=== PATIENT | male | born 1945 | race Caucasian/White ===

== ENCOUNTER → 2018-05-26 | Outpatient (CLI) | payer MEDICARE, BC ==
[2018-05-26 17:43] LABS: BASOPHILS # (AUTO) 0.04 x10^3/uL (0-0.1); BASOPHILS % (AUTO) 1 % (0-1); EOSINOPHILS # (AUTO) 0.17 x10^3/uL (0-0.4); EOSINOPHILS % (AUTO) 4 % (1-7); LYMPHOCYTES # (AUTO) 1.53 x10^3/uL (1-3.4); LYMPHOCYTES % (AUTO) 31 % (22-44); MD NO; MEAN CORPUSCULAR HGB CONC 34.1 g/dL (33.2-36.2); MEAN CORPUSCULAR VOLUME 96.8 fL (81-97); MEAN PLATELET VOLUME 7.9 fL (7.4-10.4); MONOCYTES % (AUTO) 12 % (2-9); NEUTROPHILS # (AUTO) 2.58 x10^3/uL (1.8-6.8); NEUTROPHILS % (AUTO) 52 % (42-75); PLATELET COUNT 194 x10^3/uL (130-400); RED CELL DISTRIBUTION WIDTH 13.7 % (9.4-14.8)
[2018-05-26 17:54] LABS: ALANINE AMINOTRANSFERASE 29 U/L (12-78); ANION GAP 6 mmol/L (5-15); CALCIUM 8.8 mg/dL (8.5-10.1); CHLORIDE 104 mmol/L (98-107)
[2018-05-26 17:57] LABS: ALKALINE PHOSPHATASE 72 U/L (45-117); BILIRUBIN,TOTAL 0.2 mg/dL (0.2-1.0)
== END | disposition home or self-care (01) ==
LOC: LAB 17:26
PROVIDERS: ATTEND Family Medicine
DX: R19.5 Other fecal abnormalities (principal); G40.909 Epilepsy, unspecified, not intractable, without status epilepticus
CPT/HCPCS: 36415; 80053; 85025

== ENCOUNTER → 2018-08-11 | Outpatient (CLI) | payer MEDICARE, BC | END | disposition home or self-care (01) | LOC: CFH 15:42 | PROVIDERS: ATTEND Internal Medicine Cardiovascular Disease | DX: I08.3 Combined rheumatic disorders of mitral, aortic and tricuspid valves (principal); I25.10 Atherosclerotic heart disease of native coronary artery without angina pectoris; I10 Essential (primary) hypertension | CPT/HCPCS: 0399T; 93306 ==

== ENCOUNTER 2019-07-08 02:10 | Observation (INO) | payer MEDICARE, BC ==
[~2019-07-08] VITALS: Ht 180.3 cm; Wt 81.0 kg
[2019-07-08] MEDS ORDERED: ONDANSETRON 2MG/ML, 2ML IVPush ONE (02:30)
[2019-07-08] MEDS ORDERED: PLEASE ENTER ALLERGIES MC SCH (02:30)
[2019-07-08] MEDS ORDERED: SODIUM CHLORIDE FLUSH 10ML SYR IVF ONE (02:30)
[2019-07-08] MEDS ORDERED: NITR0.3T5 SL (02:44)
[2019-07-08] MEDS ORDERED: LISI2.5T PO (02:44)
[2019-07-08] MEDS ORDERED: METO25TA35 PO (02:44)
[2019-07-08] MEDS ORDERED: ASPI81TA45 PO (02:44)
[2019-07-08] MEDS ORDERED: ATOR20TA86 PO (02:44)
[2019-07-08] MEDS ORDERED: LAMO250T2 PO (02:44)
[2019-07-08] MEDS ORDERED: PHEN100C PO (02:44)
[2019-07-08] MEDS ORDERED: RIVA20TA PO (02:44)
[2019-07-08] MEDS ORDERED: GABA300C10 PO (02:44)
[2019-07-08] MEDS ORDERED: VIT1CAPS42 PO (02:44)
[2019-07-08] MEDS ORDERED: ISOS30TA8 PO (02:44)
[2019-07-08] MEDS ORDERED: DIPH25CA61 PO (02:44)
[2019-07-08 02:52] LABS: BASOPHILS # (AUTO) 0.03 x10^3/uL (0-0.1); BASOPHILS % (AUTO) 1 % (0-1); EOSINOPHILS # (AUTO) 0.13 x10^3/uL (0-0.4); EOSINOPHILS % (AUTO) 4 % (1-7); LYMPHOCYTES # (AUTO) 1.18 x10^3/uL (1-3.4); LYMPHOCYTES % (AUTO) 33 % (22-44); MD NO; MEAN CORPUSCULAR HGB CONC 33.9 g/dL (33.2-36.2); MEAN CORPUSCULAR VOLUME 97.3 fL (81-97); MEAN PLATELET VOLUME 8.2 fL (7.4-10.4); MONOCYTES # (AUTO) 0.49 x10^3/uL (0.2-0.8); MONOCYTES % (AUTO) 14 % (2-9); NEUTROPHILS # (AUTO) 1.71 x10^3/uL (1.8-6.8); NEUTROPHILS % (AUTO) 48 % (42-75); PLATELET COUNT 190 x10^3/uL (130-400); RED BLOOD COUNT 4.11 x10^6/uL (4.38-5.82)
[2019-07-08] MEDS ORDERED: MORPHINE SULFATE 4 MG/ML, 1ML ONE (02:56)
[2019-07-08] MEDS ORDERED: ONDANSETRON 2MG/ML, 2ML ONE (02:56)
[2019-07-08] MEDS: MORPHINE SULFATE 4 MG/ML, 1ML IVPush PRN ×2 (02:58→03:07)
--- NOTE | 2019-07-08 03:10 | NUR ---
Late entry: Patient BIB [facility] c/o left side chest pressure since 2300. The discomfort woke him from sleep. Patient denied other associated symptoms such as nausea, diaphoresis, or radiation. Patient has a cardiac hx with Nitro PRN. Patient self admin 324mg ASA and 3 Nitro with no relief. IV established by EMS; no meds given en route. Patient is in obvious discomfort but rates his pain at a 3/10. Respirations even and unlabored.
[2019-07-08 03:11] LABS: ALANINE AMINOTRANSFERASE 34 U/L (12-78); ALBUMIN 3.6 g/dL (3.4-5.0); ANION GAP 6 mmol/L (5-15); CALCIUM 8.7 mg/dL (8.5-10.1); CHLORIDE 106 mmol/L (98-107); CREATININE 1.43 mg/dL (0.7-1.3)
--- NOTE | 2019-07-08 03:13 | NUR ---
Patient offered meds per mar for his pain but he initially refused. Patient agreed to half dose of morphine. Admin meds per mar.
[2019-07-08 03:16] LABS: ALKALINE PHOSPHATASE 60 U/L (45-117); BILIRUBIN,TOTAL 0.1 mg/dL (0.2-1.0); TOTAL PROTEIN 6.6 g/dL (6.4-8.2)
[2019-07-08] MEDS ORDERED: morphine SULFATE 10 MG/ML, 1ML IVPush ONE (03:30)
[2019-07-08] MEDS ORDERED: ONDANSETRON ODT 4 MG PO PRN (04:00)
[2019-07-08] MEDS ORDERED: ENALAPRILAT 1.25 MG/ML, 2ML IVPush PRN (04:00)
[2019-07-08] MEDS ORDERED: ONDANSETRON 2MG/ML, 2ML IVPush PRN ×2 (04:00)
[2019-07-08] MEDS ORDERED: ENOXAPARIN 40 MG/0.4 ML SQ SCH (04:00)
[2019-07-08] MEDS ORDERED: LABETALOL 5MG/ML, 20ML IVPush PRN (04:00)
[2019-07-08] MEDS ORDERED: morphine SULFATE 10 MG/ML, 1ML IVPush PRN (04:00)
[2019-07-08] MEDS ORDERED: BISACODYL 10 MG SUPP PR PRN (04:00)
[2019-07-08] MEDS ORDERED: OXYcodone IR 5MG TABLET PO PRN (04:00)
[2019-07-08] MEDS ORDERED: POLYETHYLENE GLYCOL 17 GM PACKET PO PRN (04:00)
[2019-07-08] MEDS ORDERED: ACETAMINOPHEN 325 MG TABLET PO PRN (04:00)
[2019-07-08] MEDS ORDERED: NITROGLYCERIN 0.4 MG BOTTLE (25 TABS) SL PRN (04:00)
[2019-07-08] MEDS ORDERED: NITROGLYCERIN 0.4 MG SL PRN (04:00)
--- NOTE | 2019-07-08 04:21 | NUR ---
Report given to VISHAL Ovalle. Patient to be transferred to bed 521-1.
[2019-07-08 04:54] VITALS: BP 126/75
[2019-07-08] MEDS: ENOXAPARIN MC SCH ×2 (05:00→12:18)
[2019-07-08] MEDS: RIVAROXABAN MC SCH ×2 (05:00→12:18)
[2019-07-08] MEDS ORDERED: ASPIRIN 325 MG TABLET EC PO SCH (06:00)
[2019-07-08] MEDS ORDERED: PANTOPROZOLE 40MG TABLET PO SCH (07:30)
[2019-07-08] MEDS ORDERED: LISINOPRIL 5 MG TABLET PO SCH ×3 (09:00→21:00)
[2019-07-08] MEDS ORDERED: LAMOTRIGINE 100 MG TABLET PO SCH (09:00)
[2019-07-08] MEDS ORDERED: RIVAROXABAN 20 MG TABLET PO SCH ×4 (09:00→21:00)
[2019-07-08] MEDS ORDERED: METOPROLOL TARTRATE 25 MG TAB PO SCH ×3 (09:00→21:00)
[2019-07-08] MEDS ORDERED: ATORVASTATIN 10 MG TABLET PO SCH ×3 (09:00→21:00)
[2019-07-08] MEDS ORDERED: MULTIVITAMIN 1 TABLET PO SCH (09:00)
[2019-07-08] MEDS ORDERED: PHENYTOIN 100 MG CAPSULE PO SCH ×3 (09:00→21:00)
[2019-07-08] MEDS ORDERED: ISOSORBIDE MONONITRATE ER 30 MG TABLET PO SCH ×3 (09:00→21:00)
[2019-07-08] MEDS ORDERED: SENNA/DOCUSATE TABLET PO SCH (09:00)
[2019-07-08] MEDS ORDERED: DIPHENHYDRAMINE 25 MG CAPSULE PO SCH ×3 (09:00→21:00)
[2019-07-08] MEDS: GABAPENTIN 300 MG CAPSULE PO SCH ×2 (09:54→16:21)
[2019-07-08 10:04] VITALS: BP 149/86
[2019-07-08] MEDS ORDERED: REGADENOSON 0.4 MG/5 ML SYRINGE ONE (11:46)
[2019-07-08 14:23] LABS: TROPONIN I 0.018 ng/mL (0.000-0.045)
[2019-07-08] MEDS ORDERED: OMEP-110 PO (15:50)
[2019-07-08 16:26] VITALS: BP 135/73
== END 2019-07-08 17:00 | disposition home or self-care (01) ==
LOC: ED 04:02 → INTOOBSV 04:24 → EDIP 04:24 → 5SO 04:32 → DCLOUNGE 16:55
PROVIDERS: ADMIT Internal Medicine; ATTEND Internal Medicine
DX: R07.89 Other chest pain (principal); N17.9 Acute kidney failure, unspecified; I25.110 Atherosclerotic heart disease of native coronary artery with unstable angina pectoris; I25.2 Old myocardial infarction; G40.909 Epilepsy, unspecified, not intractable, without status epilepticus; Z95.5 Presence of coronary angioplasty implant and graft; I27.20 Pulmonary hypertension, unspecified; G20 Parkinson's disease; Z79.899 Other long term (current) drug therapy; Z79.82 Long term (current) use of aspirin; Z79.01 Long term (current) use of anticoagulants
CPT/HCPCS: 36415; 71045; 78452; 80053; 83880; 84484; 85025; 93005; 93017; 96374; 96375; 96376; 99285; A9502; C9898; G0378; J2270; J2405; J2785

== ENCOUNTER 2020-01-31 10:58 | Observation (INO) | payer MEDICARE, BC ==
[~2020-01-31] VITALS: Ht 177.8 cm; Wt 78.4 kg
[~2020-01-31 10:58] MED LIST: ASPI81TA45 PO; ATOR20TA86 PO; DIPH25CA61 PO; GABA300C10 PO; ISOS30TA8 PO; LAMO250T2 PO; LISI2.5T PO; METO25TA35 PO; NITR0.3T5 SL; OMEP-110 PO; PHEN100C PO; RIVA20TA PO; VIT1CAPS42 PO
[2020-01-31] MEDS ORDERED: SODIUM CHLORIDE FLUSH 10ML SYR IVF ONE (11:30)
--- NOTE | 2020-01-31 11:42 | NUR ---
PT BIB EMS WHO STATES PT C/O MID STERNAL CHEST PAIN THAT RADIATES TO HIS NECK AND SOB AND GENERAL WEAKNESS. PT DENIES N/V. PT STATES PAIN CAME ON GRADUAL AND IS SHARP IN NATURE. PT MEDICATED PRIOR TO EMS ARRIVAL WTIH 3 NTG AND 324 ASA. PAIN STATES RELIEF WITH ELEMENT[employer] TE[employer]ER FROM 02/02 TO 07/03. EMS STARTED 18 GA RAC PRIOR TO ARRIVAL.
[2020-01-31 11:43] LABS: BASOPHILS % (AUTO) 1 % (0-1); EOSINOPHILS % (AUTO) 2 % (1-7); LYMPHOCYTES % (AUTO) 23 % (22-44); MEAN CORPUSCULAR HEMOGLOBIN 33.1 pg (27.5-34.5); MEAN CORPUSCULAR HGB CONC 33.7 g/dL (33.2-36.2); MEAN PLATELET VOLUME 8.2 fL (7.4-10.4); MONOCYTES % (AUTO) 12 % (2-9); NEUTROPHILS % (AUTO) 62 % (42-75); PLATELET COUNT 194 x10^3/uL (130-400); RED BLOOD COUNT 4.07 x10^6/uL (4.38-5.82); RED CELL DISTRIBUTION WIDTH 13.4 % (9.4-14.8)
[2020-01-31 11:44] LABS: MD NO
[2020-01-31 11:55] LABS: ALANINE AMINOTRANSFERASE 26 U/L (12-78); ALBUMIN 3.5 g/dL (3.4-5.0); ANION GAP 7 mmol/L (5-15); CALCIUM 8.9 mg/dL (8.5-10.1); CHLORIDE 101 mmol/L (98-107); CREATININE 0.91 mg/dL (0.7-1.3)
[2020-01-31 11:59] LABS: ALKALINE PHOSPHATASE 84 U/L (45-117); BILIRUBIN,TOTAL 0.2 mg/dL (0.2-1.0); TOTAL PROTEIN 6.6 g/dL (6.4-8.2); TROPONIN I < 0.015 ng/mL (0.000-0.045)
[2020-01-31] MEDS ORDERED: KETOROLAC 30 MG/1 ML IVPush ONE (12:30)
[2020-01-31 12:31] LABS: PROTHROMBIN TIME 10.3 Seconds (9.6-11.5)
--- NOTE | 2020-01-31 12:39 | NUR ---
BREAK RN NOTE: PT RESTING ON GURNEY, A&O, RESPS EVEN AND UNLABORED. SINUS WALLY RATE 50S ON BOARD CERTIFIED ARTS THERAPIST WITH NO ECTOPY NOTED. PT INSTRUCTED TO PROVIDE CLEAN CATCH URINE, SUPPLIES AT BEDSIDE. AT BEDSIDE TO ASSIST.
--- NOTE | 2020-01-31 13:01 | NUR ---
URINE WALKED TO LAB. REPORT GIVEN BACK TO VISHAL BOYLE WHO IS RESUMING CARE.
[2020-01-31] MEDS ORDERED: KETOROLAC 30 MG/1 ML ONE (13:20)
[2020-01-31 13:33] LABS: MICROSCOPIC NOT IND
--- NOTE | 2020-01-31 13:39 | NUR ---
PT MEDICATED FOR PAIN PER MAR. PT STATES PAIN IS 5-6/10. PT RESTING WITH SPOUSE BEDSIDE. PT ALSO STATES HE IS NOW OK WITH ADMISSION TO THE HOSPITAL.
[2020-01-31] MEDS ORDERED: ALBUTEROL 90 MG (14:15)
[2020-01-31] MEDS ORDERED: CALCIUM (14:15)
[2020-01-31] MEDS ORDERED: PRESERVISION (14:15)
--- NOTE | 2020-01-31 14:33 | NUR ---
[facility] REPORT GIVEN TO VISHAL BRUNSON [phone]
[2020-01-31 15:05] VITALS: BP 168/94
[2020-01-31] MEDS ORDERED: MORPHINE SULFATE 4 MG/ML, 1ML ONE (15:22)
[2020-01-31 15:54] LABS: TROPONIN I < 0.015 ng/mL (0.000-0.045)
[2020-01-31] MEDS ORDERED: MORPHINE SULFATE 4 MG/ML, 1ML IVPush ONE (16:00)
[2020-01-31 16:06] VITALS: BP 156/97
[2020-01-31] MEDS ORDERED: NITROGLYCERIN 0.4 MG BOTTLE (25 TABS) SL PRN (16:30)
[2020-01-31] MEDS ORDERED: NITROGLYCERIN 0.4 MG SL PRN (16:30)
[2020-01-31] MEDS ORDERED: morphine SULFATE 10 MG/ML, 1ML IVPush PRN (17:00)
[2020-01-31] MEDS ORDERED: hydrALAzine 20 MG/ML, 1ML IVPush PRN (17:00)
[2020-01-31] MEDS: RIVAROXABAN 20 MG TABLET PO SCH ×2 (17:00→20:15)
[2020-01-31] MEDS ORDERED: LABETALOL 5MG/ML, 20ML IVPush PRN ×2 (17:00)
[2020-01-31] MEDS ORDERED: ACETAMINOPHEN 325 MG TABLET PO PRN (17:00)
[2020-01-31] MEDS ORDERED: HEPARIN 5,000 UNITS/ML, 1ML SQ SCH (18:00)
[2020-01-31 19:49] VITALS: BP 182/90
[2020-01-31 20:16] VITALS: BP 158/83
[2020-01-31] MEDS: GABAPENTIN 300 MG CAPSULE PO SCH (20:19)
[2020-01-31] MEDS: LAMOTRIGINE 250 MG PO SCH (20:55)
[2020-01-31] MEDS ORDERED: PHENYTOIN 100 MG CAPSULE PO SCH (21:00)
[2020-01-31] MEDS ORDERED: ISOSORBIDE MONONITRATE ER 30 MG TABLET PO SCH (21:00)
[2020-01-31] MEDS ORDERED: METOPROLOL SUCCINATE 25 MG TAB.ER.24H PO SCH (21:00)
[2020-02-01 00:43] VITALS: BP 137/76
[2020-02-01 04:53] LABS: ANION GAP 5 mmol/L (5-15); CALCIUM 8.5 mg/dL (8.5-10.1); CHLORIDE 100 mmol/L (98-107)
[2020-02-01 05:05] LABS: CREATININE 1.07 mg/dL (0.7-1.3)
[2020-02-01 07:05] VITALS: BP 131/75
[2020-02-01] MEDS: GABAPENTIN 300 MG CAPSULE PO SCH ×2 (08:09→15:18)
[2020-02-01] MEDS ORDERED: PHENYTOIN 100 MG CAPSULE PO SCH (09:00)
[2020-02-01] MEDS ORDERED: DIPHENHYDRAMINE 25 MG CAPSULE PO SCH (09:00)
[2020-02-01] MEDS ORDERED: ASPIRIN 81 MG TABLET EC PO SCH (09:00)
[2020-02-01] MEDS: LAMOTRIGINE 250 MG PO SCH (09:00)
[2020-02-01] MEDS ORDERED: ISOSORBIDE MONONITRATE ER 30 MG TABLET PO SCH (09:00)
[2020-02-01] MEDS ORDERED: TEMPLATE NON-FORMULARY MED. (Lisinopril** 2.5 MG) PO SCH (09:00)
[2020-02-01] MEDS ORDERED: METOPROLOL SUCCINATE 25 MG TAB.ER.24H PO SCH (09:00)
[2020-02-01] MEDS ORDERED: ATORVASTATIN 10 MG TABLET PO SCH (09:00)
[2020-02-01] MEDS ORDERED: REGADENOSON 0.4 MG/5 ML SYRINGE ONE (12:53)
[2020-02-01] MEDS ORDERED: SODIUM CHLORIDE 0.9% 1,000 ML IV SCH (13:00)
[2020-02-01 13:42] VITALS: BP 145/67
[2020-02-01] MEDS ORDERED: PANT40TA3 PO (16:55)
[2020-02-01] MEDS ORDERED: RIVAROXABAN 20 MG TABLET PO SCH (17:00)
[2020-02-01] MEDS ORDERED: OMNIPAQUE 350 MG/ML, 75ML BOTTLE ONE (17:50)
[2020-02-01] MEDS ORDERED: FLU VACC QS2020-21(6MOS UP)/PF 60MCG/0.5 ML SYR IM ONE (18:16)
== END 2020-02-01 19:43 | disposition home or self-care (01) ==
LOC: ED 12:15 → EDIP 13:36 → INTOOBSV 13:36 → 5SO 14:58
PROVIDERS: ADMIT Family Medicine; ATTEND Internal Medicine
DX: R07.89 Other chest pain (principal); I48.0 Paroxysmal atrial fibrillation; R00.2 Palpitations; I11.0 Hypertensive heart disease with heart failure; I50.9 Heart failure, unspecified; G40.909 Epilepsy, unspecified, not intractable, without status epilepticus; I25.110 Atherosclerotic heart disease of native coronary artery with unstable angina pectoris; I25.2 Old myocardial infarction; K21.9 Gastro-esophageal reflux disease without esophagitis; E78.5 Hyperlipidemia, unspecified; R42 Dizziness and giddiness; Z87.39 Personal history of other diseases of the musculoskeletal system and connective tissue; Z79.01 Long term (current) use of anticoagulants; Z79.899 Other long term (current) drug therapy; Z95.5 Presence of coronary angioplasty implant and graft; Z77.22 Contact with and (suspected) exposure to environmental tobacco smoke (acute) (chronic); Z23 Encounter for immunization
CPT/HCPCS: 36415; 71045; 71275; 78452; 80048; 80053; 81003; 83605; 83735; 84443; 84484; 85025; 85379; 85610; 90686; 93005; 93017; 93306; 96361; 96374; 96375; 99285; A9502; C9898; G0008; G0378; J1885; J2270; J2785; J7030; Q9967

== ENCOUNTER 2020-02-29 12:26 | Emergency (ER) | payer MEDICARE, BC ==
[~2020-02-29] VITALS: Ht 180.3 cm; Wt 80.0 kg
[~2020-02-29 12:26] MED LIST changes: +ALBUTEROL 90 MG; +CALCIUM; +PANT40TA3 PO; +PRESERVISION
[2020-02-29 13:16] LABS: BASOPHILS % (AUTO) 1 % (0-1); EOSINOPHILS % (AUTO) 4 % (1-7); LYMPHOCYTES % (AUTO) 33 % (22-44); MEAN CORPUSCULAR HEMOGLOBIN 32.3 pg (27.5-34.5); MEAN CORPUSCULAR HGB CONC 32.9 g/dL (33.2-36.2); MEAN PLATELET VOLUME 8.2 fL (7.4-10.4); MONOCYTES % (AUTO) 16 % (2-9); NEUTROPHILS % (AUTO) 47 % (42-75); PLATELET COUNT 163 x10^3/uL (130-400); RED BLOOD COUNT 4.15 x10^6/uL (4.38-5.82); RED CELL DISTRIBUTION WIDTH 13.5 % (9.4-14.8)
[2020-02-29 13:23] LABS: MD NO
[2020-02-29 13:27] LABS: ALANINE AMINOTRANSFERASE 27 U/L (12-78); ALBUMIN 3.6 g/dL (3.4-5.0); ANION GAP 3 mmol/L (5-15); CALCIUM 8.6 mg/dL (8.5-10.1); CHLORIDE 103 mmol/L (98-107); CREATININE 1.07 mg/dL (0.7-1.3)
[2020-02-29 13:31] LABS: ALKALINE PHOSPHATASE 71 U/L (45-117); BILIRUBIN,TOTAL 0.3 mg/dL (0.2-1.0); TOTAL PROTEIN 6.8 g/dL (6.4-8.2); TROPONIN I < 0.015 ng/mL (0.000-0.045)
[2020-02-29 16:44] VITALS: BP 166/97
== END 2020-02-29 17:11 | disposition home or self-care (01) ==
LOC: ED 16:28
DX: R06.00 Dyspnea, unspecified (principal); R07.89 Other chest pain; R06.02 Shortness of breath; I10 Essential (primary) hypertension; I25.10 Atherosclerotic heart disease of native coronary artery without angina pectoris; G40.909 Epilepsy, unspecified, not intractable, without status epilepticus
CPT/HCPCS: 36415; 71045; 80053; 84484; 85025; 93005; 99285

== ENCOUNTER → 2020-05-09 | Outpatient (CLI) | payer MEDICARE, BC | END | disposition home or self-care (01) | LOC: LAB 16:34 | PROVIDERS: ATTEND Psychiatry & Neurology Neurology | DX: Z51.81 Encounter for therapeutic drug level monitoring (principal) | CPT/HCPCS: 36415; 80185 ==

== ENCOUNTER → 2020-11-06 | Outpatient (CLI) | payer MEDICARE, BC | END | disposition home or self-care (01) | LOC: LAB 14:25 | PROVIDERS: ATTEND Psychiatry & Neurology Neurology | DX: Z51.81 Encounter for therapeutic drug level monitoring (principal) | CPT/HCPCS: 36415; 80185 ==